=== PATIENT | female | born 1965 | race Caucasian/White ===

== ENCOUNTER 2022-10-14 16:36 | Inpatient (IN) | payer MEDICAID, OTHER ==
[~2022-10-14] VITALS: Ht 154.9 cm; Wt 85.3 kg
[~2022-10-14 16:36] MED LIST: AMLO10TA4 PO; ASPI-1497 PO; CALC-988 PO; DEXTROSE 50% WATER 50ML SYRINGE IV ONE; EPINEPHRINE 0.1MG/ML (1:10,000) 10ML SYR ONE; HYDR-4134 PO; LIP40 PO; SODIUM CHLORIDE 0.9% INJ 10ML FLUSH IVF ONE
[2022-10-14 18:18] LABS: BASOPHILS % 0.8 % (0.0-2.0); EOSINOPHILS % 3.9 % (0.0-5.0); HEMOGLOBIN. 12.2 g/dL (12.0-16.0); LYMPHOCYTES % 36.8 % (20.0-50.0); MEAN CORPUSCULAR HEMOGLOBIN 32.1 pg (28.0-32.0); MEAN CORPUSCULAR VOLUME 94.7 fL (81.0-99.0); MONOCYTES % 7.6 % (2.0-8.0); NEUTROPHILS % 50.9 % (40.0-76.0); PLATELET 232 x1000/uL (130-400); RED CELL DISTRIBUTION WIDTH 13.9 % (11.6-14.6)
[2022-10-14 18:24] LABS: PROTHROMBIN TIME 10.4 sec (9.6-11.0)
[2022-10-14 18:31] LABS: CHLORIDE 110 mEq/L (98-107)
[2022-10-14 18:42] LABS: PHOSPHORUS 3.3 mg/dL (2.5-4.9)
[2022-10-14] MEDS ORDERED: SODIUM CHLORIDE 0.9% 1,000 ML IV ONE (19:00)
[2022-10-14] MEDS ORDERED: CALCIUM GLUCONATE 100MG/ML 10ML VIAL IV ONE (19:00)
[2022-10-14] MEDS ORDERED: DEXTROSE 50% WATER 50ML SYRINGE IV ONE (19:00)
[2022-10-14] MEDS ORDERED: INSULIN REGULAR (HUMULIN R) 300UNITS/3ML VIAL IV ONE ×2 (19:00)
[2022-10-14] MEDS ORDERED: SODIUM POLYSTYRENE SULFONATE 15 G/60 ML BOT PO ONE (19:00)
[2022-10-14 19:31] LABS: CLARITY URINE CLEAR (CLEAR); COLOR URINE YELLOW (YELLOW); KETONES URINE NEGATIVE (NEGATIVE); LEUKOCYTE ESTERASE URINE TRACE (NEGATIVE); NITRITE URINE NEGATIVE (NEGATIVE); OCCULT BLOOD URINE NEGATIVE (NEGATIVE); PH URINE 7.5 (4.5-8.0); PROTEIN URINE NEGATIVE (NEGATIVE); UROBILINOGEN URINE 0.2 E.U./dL (0.2-1.0)
[2022-10-14 23:35] VITALS: BP 113/74
[2022-10-15] VITALS: BP 113/74
[2022-10-15] MEDS ORDERED: DULO60CA45 PO (01:15)
[2022-10-15] MEDS ORDERED: GABA-532 PO (01:15)
[2022-10-15] MEDS ORDERED: LOSA100T32 PO (01:15)
[2022-10-15] MEDS ORDERED: MONT-39 PO (01:15)
[2022-10-15] MEDS ORDERED: HYDR200T80 PO (01:15)
[2022-10-15] MEDS ORDERED: SPIR100T5 PO (01:15)
[2022-10-15] MEDS ORDERED: DOXA4TAB3 PO (01:15)
[2022-10-15] MEDS ORDERED: CYCL10TA21 PO (01:15)
[2022-10-15] MEDS ORDERED: FENO134C21 PO (01:15)
[2022-10-15 04:00] VITALS: BP 134/77
[2022-10-15 06:08] LABS: BASOPHILS % 0.7 % (0.0-2.0); EOSINOPHILS % 4.7 % (0.0-5.0); HEMOGLOBIN. 12.4 g/dL (12.0-16.0); LYMPHOCYTES % 39.8 % (20.0-50.0); MEAN CORPUSCULAR HEMOGLOBIN 32.8 pg (28.0-32.0); MEAN CORPUSCULAR VOLUME 95.1 fL (81.0-99.0); MEAN PLATELET VOLUME 9.5 fl (7.4-10.4); MONOCYTES % 9.6 % (2.0-8.0); NEUTROPHILS % 45.2 % (40.0-76.0); PLATELET 230 x1000/uL (130-400); RED BLOOD CELL COUNT 3.79 mill/uL (4.2-5.4); RED CELL DISTRIBUTION WIDTH 13.7 % (11.6-14.6)
[2022-10-15 08:00] VITALS: BP 131/80
[2022-10-15] MEDS: GABAPENTIN 300MG CAPSULE PO SCH ×2 (08:53→13:20)
[2022-10-15] MEDS ORDERED: HYDROXYCHLOROQUINE SULFATE 200MG TABLET PO SCH (09:00)
[2022-10-15] MEDS ORDERED: DULOXETINE HCL 60MG DR CAPSULE PO SCH (09:00)
[2022-10-15] MEDS ORDERED: AMLODIPINE 10MG TABLET PO SCH (09:00)
[2022-10-15] MEDS ORDERED: FENOFIBRATE 134 MG PO SCH (09:00)
[2022-10-15] MEDS ORDERED: SODIUM POLYSTYRENE SULFONATE 15 G/60 ML BOT PO NR (11:30)
[2022-10-15] MEDS ORDERED: SODIUM POLYSTYRENE SULFONATE 15 G/60 ML BOT PO ONE (11:30)
[2022-10-15] MEDS ORDERED: SODIUM CHLORIDE 0.45% 1,000 ML IV SCH (11:30)
[2022-10-15 12:00] VITALS: BP 123/81
[2022-10-15 16:00] VITALS: BP 124/86
[2022-10-15] MEDS ORDERED: MONTELUKAST SODIUM 10MG TABLET PO SCH (21:00)
[2022-10-15] MEDS ORDERED: CYCLOBENZAPRINE 10MG TABLET PO SCH (21:00)
[2022-10-15] MEDS ORDERED: DOXAZOSIN MESYLATE 4MG TABLET PO SCH (21:00)
[2022-10-15] MEDS ORDERED: ATORVASTATIN CALCIUM 40MG TABLET PO SCH (21:00)
== END 2022-10-15 17:25 | disposition home or self-care (01) | DRG 425 ==
LOC: ER 16:36 → 7EST 21:35 → EDBEDREQTM 21:47 → EDBEDREQ 21:47 → ENRESERV 23:00
PROVIDERS: ADMIT Internal Medicine; ATTEND Internal Medicine
DX: E87.5 Hyperkalemia (principal); N17.9 Acute kidney failure, unspecified; I12.9 Hypertensive chronic kidney disease with stage 1 through stage 4 chronic kidney disease, or unspecified chronic kidney disease; N18.2 Chronic kidney disease, stage 2 (mild); E66.9 Obesity, unspecified; Z20.822 Contact with and (suspected) exposure to COVID-19; R73.03 Prediabetes; E78.5 Hyperlipidemia, unspecified; G89.29 Other chronic pain; F41.9 Anxiety disorder, unspecified; E78.00 Pure hypercholesterolemia, unspecified; Z82.49 Family history of ischemic heart disease and other diseases of the circulatory system; Z90.49 Acquired absence of other specified parts of digestive tract; Z79.899 Other long term (current) drug therapy; Z68.35 Body mass index [BMI] 35.0-35.9, adult; Z83.3 Family history of diabetes mellitus
CPT/HCPCS: 36415; 71045; 76770; 80048; 80053; 81003; 82570; 83036; 83735; 83880; 84100; 84156; 84484; 85025; 87426; 93005; 99285; C9803; J0610; J1815; J3490; J7030

== ENCOUNTER 2025-05-16 14:31 | Emergency (ER) | payer MEDICAID ==
[~2025-05-16] VITALS: Ht 160 cm; Wt 100.0 kg
[~2025-05-16 14:31] MED LIST changes: +AMLO-905 PO; -AMLO10TA4 PO; +CYCL10TA21 PO; -DEXTROSE 50% WATER 50ML SYRINGE IV ONE; +DOXA4TAB3 PO; +DULO60CA45 PO; -EPINEPHRINE 0.1MG/ML (1:10,000) 10ML SYR ONE; +FENO134C21 PO; +GABA-1180 PO; -HYDR-4134 PO; +HYDR200T80 PO; +LOSA100T33 PO; +MONT-39 PO; -SODIUM CHLORIDE 0.9% INJ 10ML FLUSH IVF ONE; +SPIR100T5 PO
[2025-05-16 14:42] VITALS: O2SAT 98
[2025-05-16] MEDS: SODIUM CHLORIDE 0.9% 1,000 ML IV ONE (16:05)
[2025-05-16] MEDS: ONDANSETRON HCL 4MG/2ML INJ IV ONE (16:05)
[2025-05-16 16:35] LABS: BASOPHILS % 0.5 % (0.0-2.0); EOSINOPHILS % 4.8 % (0.0-5.0); HEMATOCRIT. 44.2 % (36.0-48.0); HEMOGLOBIN. 14.5 g/dL (12.0-16.0); LYMPHOCYTES % 31.3 % (20.0-50.0); MEAN PLATELET VOLUME 10.3 fl (7.4-10.4); MONOCYTES % 7.3 % (2.0-8.0); NEUTROPHILS % 56.1 % (40.0-76.0); PLATELET 197 x1000/uL (130-400); RED BLOOD CELL COUNT 4.83 mill/uL (4.2-5.4); RED CELL DISTRIBUTION WIDTH 14.8 % (11.6-14.6)
[2025-05-16 16:51] LABS: CREATININE 1.2 mg/dL (0.6-1.0)
[2025-05-16 16:52] LABS: UREA NITROGEN BLOOD 19 mg/dL (9-23)
[2025-05-16 16:53] LABS: ASPARTATE AMINOTRANSFERASE 28 IU/L (<34); BILIRUBIN DIRECT 0.1 mg/dL (<=3.0)
[2025-05-16 16:54] LABS: BILIRUBIN TOTAL 0.6 mg/dL (0.1-1.0); PROTEIN TOTAL 7.3 g/dL (6.0-8.3)
[2025-05-16] MEDS ORDERED: ONDA4TAB50 MT (16:59)
[2025-05-16 17:46] VITALS: BP 147/83; PULSE 89; RESP 16; TEMP 36.6; O2SAT 98
== END 2025-05-16 17:47 | disposition home or self-care (01) ==
LOC: ER 14:31
DX: I12.9 Hypertensive chronic kidney disease with stage 1 through stage 4 chronic kidney disease, or unspecified chronic kidney disease (principal); E11.22 Type 2 diabetes mellitus with diabetic chronic kidney disease; N18.9 Chronic kidney disease, unspecified; E78.00 Pure hypercholesterolemia, unspecified; Z79.82 Long term (current) use of aspirin; Z90.49 Acquired absence of other specified parts of digestive tract; Z79.899 Other long term (current) drug therapy; Z98.890 Other specified postprocedural states
CPT/HCPCS: 99284; 96374; 96361; 80076; 80048; 83690; 85025; 36415; 93005; J2405; J7030